=== PATIENT | female | born 1995 | race African-American/Black ===

== ENCOUNTER 2019-11-02 09:34 | Emergency (ER) | payer OTHER ==
[~2019-11-02] VITALS: Ht 160 cm; Wt 138.3 kg
[2019-11-02 09:46] VITALS: Ht 160 cm; Wt 138.3 kg
[2019-11-02 10:15] VITALS: BP 138/100
== END 2019-11-02 10:15 | disposition home or self-care (01) ==
LOC: ED 09:34
DX: A69.1 Other Vincent's infections (principal); K05.10 Chronic gingivitis, plaque induced; Z88.1 Allergy status to other antibiotic agents